=== PATIENT | female | born 1995 | race Caucasian/White ===

== ENCOUNTER 2019-09-22 01:55 | Inpatient (IN) | payer MEDICAID ==
[2019-09-22] MEDS ORDERED: Carboprost Tromethamine 250 MCG/1 ML Amp IM PRN (04:07)
[2019-09-22] MEDS ORDERED: Water For Irrigation,Sterile 1,000 ML Container IRR PRN (04:07)
[2019-09-22] MEDS ORDERED: Lidocaine 1% 50 ML MDV INJECT PRN (04:07)
[2019-09-22] MEDS ORDERED: Butorphanol 1 MG/ML SDV IVPUSH PRN (04:07)
[2019-09-22] MEDS ORDERED: Misoprostol 200 MCG Tab PO PRN (04:07)
[2019-09-22] MEDS ORDERED: Sodium Chloride 0.9% 10 ML SDV IV PRN (04:07)
[2019-09-22] MEDS ORDERED: Nalbuphine 10 MG/1 ML Vial IVPUSH PRN (04:07)
[2019-09-22] MEDS ORDERED: Tranexamic Acid 1,000 MG in Sodium Chloride 0.9% 100 ML IV PRN (04:07)
[2019-09-22] MEDS ORDERED: Sodium Chloride 0.9% 10 ML Syringe FLUSH PRN (04:07)
[2019-09-22] MEDS ORDERED: Ondansetron 4 MG/2 ML SDV IVPUSH PRN (04:07)
[2019-09-22] MEDS ORDERED: Methylergonovine 0.2 MG/1 ML Amp IM PRN (04:07)
[2019-09-22] MEDS ORDERED: Sodium Chloride 0.9% 2.5 ML Syringe FLUSH PRN (04:07)
[2019-09-22] MEDS ORDERED: Lactated Ringers 1,000 ML IV SCH (04:15)
[2019-09-22] MEDS ORDERED: Oxytocin/0.9 % Sodium Chloride 30 UNIT/500 ML BAG IV SCH (04:15)
[2019-09-22] MEDS ORDERED: Benzocaine/Menthol 20%-0.5% Spray 78 GM Cannister TOP PRN (07:41)
[2019-09-22] MEDS ORDERED: Acetaminophen 500 MG Tab PO PRN (07:41)
[2019-09-22] MEDS ORDERED: Bisacodyl 10 MG Supp RECTAL PRN (07:41)
[2019-09-22] MEDS ORDERED: Diphtheria,Pertussis(Acell),Tetanus Vaccine 0.5 ML Syringe IM ONE (07:41)
[2019-09-22] MEDS ORDERED: oxyCODONE 5 MG Tab PO PRN (07:41)
[2019-09-22] MEDS ORDERED: Lanolin 100% Cream 7 GM Tube TOP PRN (07:41)
[2019-09-22] MEDS ORDERED: Witch Hazel Medicated Pads 40/Jar TOP PRN (07:41)
--- NOTE | 2019-09-22 07:45 | PCM.OPNOTE ---
- General Post-Op/Procedure Note Date of Surgery/Procedure: 09/22/19 Operative Procedure(s): Spontaneous vaginal delivery. Repair of second degree perineal laceration and left labial laceration Findings: Live male infant, Apgars 8/9, weight pending, cord gases pending, nuchal cord x1 Placenta intact, with 3-vessel cord Pre Op Diagnosis: 23yo at 39w3d by patient-stated JOSE Post-Op Diagnosis: 23yo s/p spontaneous vaginal delivery at 39w3d Anesthesia Technique: Local Primary Surgeon: Eleanor Cutler Pathology: Cord gases, cord blood, placenta EBL in mLs: 400 Complications: None Condition: Good
[2019-09-22] MEDS: Ibuprofen 800 MG Tab PO PRN ×2 (09:07→20:58)
--- NOTE | 2019-09-22 12:54 | HP ---
DATE OF : 1995 PRIMARY CARE PHYSICIAN: None PCP CHIEF COMPLAINT: Contractions. HISTORY OF PRESENT ILLNESS: This is a 23-year-old, G1, P0, at 39 weeks and 3 days gestation by patient- stated JOSE who presented complaining of contractions. On presentation, she was found to be 2 to 3 cm dilated. After walking for an hour, her cervix had changed to 4 to 5 cm dilated. She was admitted to Labor and Delivery for active labor. The patient had received no care throughout this . labs were obtained. She reports positive movement. She denies leakage of fluid or vaginal bleeding. PAST OBSTETRICAL HISTORY: G1 current. PAST GYNECOLOGIC HISTORY: Denies history of abnormal Pap smear. PAST MEDICAL HISTORY: Denies asthma, high blood pressure, diabetes. PAST SURGICAL HISTORY: Denies. FAMILY HISTORY: Noncontributory. SOCIAL HISTORY: Denies tobacco, alcohol, and drug use. ALLERGIES: Amoxicillin. MEDICATIONS: None. PHYSICAL EXAMINATION: VITAL SIGNS: Blood pressure 116/80, heart rate 78. GENERAL: No obvious distress. CARDIOVASCULAR: Regular rate and rhythm. LUNGS: Clear to auscultation bilaterally. ABDOMEN: Soft, nontender to palpation, gravid. PELVIC: Sterile vaginal exam, 8 cm dilated, 90% effaced, -1 station. LABORATORY DATA: Hemoglobin 13.7, platelets 258. Urine drug screen negative. Blood type B positive. Antibody screen negative. Hepatitis B negative. Hepatitis C negative. HIV negative. Rubella immune. ASSESSMENT AND PLAN: This is a 23-year-old, G1, P0, at 39 weeks and 3 days gestation by patient stated JOSE in labor. 1. Active labor, status post artificial rupture of membranes with minimal clear fluid noted. 2. GBS unknown per guidelines. No antibiotics indicated as the patient is term. 3. No care. labs obtained. The patient reports having received 4 ultrasounds throughout the . JOSEPH / SHERICE /[id number] JONATAN
--- NOTE | 2019-09-22 13:20 | OR ---
SURGEON: Eleanor Cutler MD DATE OF PROCEDURE: 09/22/2019 PREOPERATIVE DIAGNOSIS: A 23-year-old, G1, P0, at 39-3/7 weeks' gestation by patient stated estimated date of delivery. POSTOPERATIVE DIAGNOSIS: A 23-year-old, G1, P0, at 39-3/7 weeks' gestation by patient stated estimated date of delivery. PROCEDURES: 1. Spontaneous vaginal delivery. 2. Repair of second-degree laceration and left labial laceration. ANESTHESIA: Local. ESTIMATED BLOOD LOSS: 400 mL. FINDINGS: Live male infant in cephalic presentation with nuchal cord x1. scores 8 and 9 at one and five minutes respectively. Weight 3080 g. Cord gases pending. Cord blood pending. Placenta intact and with three-vessel cord. DESCRIPTION OF PROCEDURE: The patient presented to Labor and Delivery in spontaneous labor. She reported she was 39-3/7 weeks' gestation. She had received no care. She progressed to complete cervical dilation without epidural. At 8 cm dilated, she underwent artificial rupture of membranes with clear fluid noted. She progressed to complete cervical dilation without epidural. The patient pushed to spontaneous vaginal delivery and delivered a live male in cephalic presentation. The head was delivered followed by the remainder of the body. The was placed on the maternal abdomen. A nuchal cord x1 was reduced after delivery of the infant. After approximately 60 seconds of delayed cord clamping, the cord was clamped and cut. Lidocaine was infiltrated into a second-degree perineal laceration and a left labial laceration. The placenta was then delivered intact using the Morales-Castañeda maneuver. The lacerations were repaired to anatomy and hemostasis with 2-0 Vicryl. The fundus was firm, 2 cm below the umbilicus. Estimated blood loss was 400 mL. The patient and infant tolerated the delivery well. [id number] / MODL /[id number] JONATAN
--- NOTE | 2019-09-23 06:20 | PCM.PNPP ---
- General Info Date of Service: 09/23/19 Subjective Update: 23yo P1 s/p PPD 1 denies any complains Normal lochia Functional Status: Reports: Pain Controlled, Tolerating Diet, Ambulating, Urinating - Review of Systems General: Reports: No Symptoms HEENT: Reports: No Symptoms Pulmonary: Reports: No Symptoms Cardiovascular: Reports: No Symptoms Gastrointestinal: Reports: No Symptoms Genitourinary: Reports: No Symptoms Musculoskeletal: Reports: No Symptoms Skin: Reports: No Symptoms Neurological: Reports: No Symptoms Psychiatric: Reports: No Symptoms - General Info Date of Service: 09/23/19 - Patient Data Vital Signs - Most Recent: Last Vital Signs Temp 36.5 C 09/23/19 05:30 Pulse 82 09/23/19 05:30 Resp 16 09/23/19 05:30 BP 116/72 09/23/19 05:30 Pulse Ox 96 09/23/19 05:30 Weight - Most Recent: 72.575 kg Lab Results - Last 24 Hours: Laboratory Results - last 24 hr 09/22/19 Range/Units 07:14 Cord ABG pH 7.305 (7.18-7.38) Cord ABG Base Excess -8 (-10--2) Cord VBG pH 7.357 (7.25-7.45) Cord VBG Base Excess -4 (-10--2) Med Orders - Current: Current Medications Acetaminophen (Tylenol Extra Strength) 1,000 mg PO Q6H PRN PRN Reason: Pain Benzocaine/Menthol (Dermoplast Pain Relief 20%-0.5% [place]) 78 gm TOP ASDIRECTED PRN PRN Reason: Perineal Comfort Measure Last Admin: 09/22/19 09:09 Dose: 1 can Bisacodyl (Dulcolax) 10 mg RECTAL ONETIME PRN PRN Reason: Constipation Butorphanol Tartrate (Stadol) 1 mg IVPUSH Q1H PRN PRN Reason: Pain Carboprost Tromethamine (Hemabate Ds) 250 mcg IM ASDIRECTED PRN PRN Reason: Post Hemorrhage Docusate Sodium (Colace) 100 mg PO BID PRN PRN Reason: Constipation Emollient Ointment (Lansinoh Hpa) 0 gm TOP ASDIRECTED PRN PRN Reason: Sore Nipples Last Admin: 09/22/19 09:08 Dose: 7 gram Tranexamic Acid 1,000 mg/ (Sodium Chloride) 110 mls @ 660 mls/hr IV ONETIME PRN PRN Reason: Bleeding Lactated Ringer's (Ringers, Lactated) 1,000 mls @ 150 mls/hr IV ASDIRECTED [facility] Oxytocin/Sodium Chloride (Oxytocin 30 Unit/500 Ml-Ns) 30 unit in 500 mls @ 500 mls/hr IV TITRATE RA Ibuprofen (Motrin) 800 mg PO Q8H PRN PRN Reason: Pain Last Admin: 09/22/19 20:58 Dose: 800 mg Lidocaine HCl (Xylocaine 1%) 50 ml INJECT ONETIME PRN PRN Reason: Laceration repair Last Admin: 09/22/19 07:14 Dose: 50 ml Methylergonovine Maleate (Methergine) 0.2 mg IM ASDIRECTED PRN PRN Reason: Post Hemorrhage Misoprostol (Cytotec) 200 mcg PO ONETIME PRN PRN Reason: Post Hemorrhage Nalbuphine HCl (Nubain) 10 mg IVPUSH Q1H PRN PRN Reason: Pain (severe 7-10) Ondansetron HCl (Zofran) 4 mg IVPUSH Q4H PRN PRN Reason: Nausea/Vomiting Oxycodone HCl (Oxycodone) 5 mg PO Q2H PRN PRN Reason: Pain Sodium Chloride (Saline Flush) 10 ml FLUSH ASDIRECTED PRN PRN Reason: Keep Vein Open Sodium Chloride (Saline Flush) 2.5 ml FLUSH ASDIRECTED PRN PRN Reason: Keep Vein Open Sodium Chloride (Normal Saline) 10 ml IV ASDIRECTED PRN PRN Reason: IV Use Sterile Water (Sterile Water For Irrigation) 1,000 ml IRR ASDIRECTED PRN PRN Reason: delivery Last Admin: 09/22/19 07:14 Dose: 1,000 ml Witch Juany (Tucks) 1 pad TOP ASDIRECTED PRN PRN Reason: comfort care Last Admin: 09/22/19 09:09 Dose: 1 tub Discontinued Medications Diphtheria/Tetanus/Acell Pertussis (Adacel) 0.5 ml IM .ONCE ONE Stop: 09/22/19 07:42 - Interaction Support Person: Mother - Recovery Exam Fundal Tone: Firm Fundal Level: 1 Fingerbreadths Below Umbilicus Fundal Placement: Midline Lochia Amount: Scant Lochia Color: Rubra/Red Perineum Description: Intact, Minimal Bruising/Swelling Episiotomy/Laceration: Approximated Bladder Status: Voiding - Exam General: Alert HEENT: Pupils Equal Neck: Supple Lungs: Clear to Auscultation Cardiovascular: Regular Rate, Regular Rhythm GI/Abdominal Exam: Normal Bowel Sounds Extremities: Normal Inspection Neurological: No New Focal Deficit Psy/Mental Status: Alert - Problem List & Annotations (1) Vaginal delivery SNOMED Code(s): 388516483 Code(s): O80 - ENCOUNTER FOR FULL-TERM UNCOMPLICATED DELIVERY Status: Acute Current Visit: Yes - Problem List Review Problem List Initiated/Reviewed/Updated: Yes - Assessment Assessment:: 23yo P1 s/p PPD1 , stable , Normal lochia , - Plan Plan:: Routine care Anticipate discharge tomorrow because will be kept for 48hrs for GBS unknown status of mother and no antibiotics prior to delivery
[2019-09-23] MEDS: Docusate Sodium 100 MG Cap PO PRN ×2 (07:56→21:43)
[2019-09-23] MEDS: Ibuprofen 800 MG Tab PO PRN ×2 (07:56→21:43)
[2019-09-24] MEDS: Ibuprofen 800 MG Tab PO PRN (06:18)
--- NOTE | 2019-09-24 08:42 | PCM.PNPP ---
- General Info Date of Service: 09/24/19 Subjective Update: 23yo P1 s/p PPD 2 denies any complains Normal lochia Functional Status: Reports: Pain Controlled, Tolerating Diet, Ambulating, Urinating - Review of Systems General: Reports: No Symptoms HEENT: Reports: No Symptoms Pulmonary: Reports: No Symptoms Cardiovascular: Reports: No Symptoms Gastrointestinal: Reports: No Symptoms Genitourinary: Reports: No Symptoms Musculoskeletal: Reports: No Symptoms Skin: Reports: No Symptoms Neurological: Reports: No Symptoms Psychiatric: Reports: No Symptoms - General Info Date of Service: 09/24/19 - Patient Data Vital Signs - Most Recent: Last Vital Signs Temp 36.5 C 09/24/19 07:32 Pulse 83 09/24/19 07:32 Resp 18 09/24/19 07:32 BP 98/66 09/24/19 07:32 Pulse Ox 96 09/24/19 07:32 Weight - Most Recent: 72.575 kg Lab Results - Last 24 Hours: Laboratory Results - last 24 hr 09/22/19 Range/Units 04:29 RPR Non Reactive (NonRea<1:1) Med Orders - Current: Current Medications Acetaminophen (Tylenol Extra Strength) 1,000 mg PO Q6H PRN PRN Reason: Pain Last Admin: 09/23/19 15:01 Dose: 1,000 mg Benzocaine/Menthol (Dermoplast Pain Relief 20%-0.5% [place]) 78 gm TOP ASDIRECTED PRN PRN Reason: Perineal Comfort Measure Last Admin: 09/22/19 09:09 Dose: 1 can Bisacodyl (Dulcolax) 10 mg RECTAL ONETIME PRN PRN Reason: Constipation Butorphanol Tartrate (Stadol) 1 mg IVPUSH Q1H PRN PRN Reason: Pain Carboprost Tromethamine (Hemabate Ds) 250 mcg IM ASDIRECTED PRN PRN Reason: Post Hemorrhage Docusate Sodium (Colace) 100 mg PO BID PRN PRN Reason: Constipation Last Admin: 09/23/19 21:43 Dose: 100 mg Emollient Ointment (Lansinoh Hpa) 0 gm TOP ASDIRECTED PRN PRN Reason: Sore Nipples Last Admin: 09/22/19 09:08 Dose: 7 gram Tranexamic Acid 1,000 mg/ (Sodium Chloride) 110 mls @ 660 mls/hr IV ONETIME PRN PRN Reason: Bleeding Lactated Ringer's (Ringers, Lactated) 1,000 mls @ 150 mls/hr IV ASDIRECTED [facility] Oxytocin/Sodium Chloride (Oxytocin 30 Unit/500 Ml-Ns) 30 unit in 500 mls @ 500 mls/hr IV TITRATE [facility] Ibuprofen (Motrin) 800 mg PO Q8H PRN PRN Reason: Pain Last Admin: 09/24/19 06:18 Dose: 800 mg Lidocaine HCl (Xylocaine 1%) 50 ml INJECT ONETIME PRN PRN Reason: Laceration repair Last Admin: 09/22/19 07:14 Dose: 50 ml Methylergonovine Maleate (Methergine) 0.2 mg IM ASDIRECTED PRN PRN Reason: Post Hemorrhage Misoprostol (Cytotec) 200 mcg PO ONETIME PRN PRN Reason: Post Hemorrhage Nalbuphine HCl (Nubain) 10 mg IVPUSH Q1H PRN PRN Reason: Pain (severe 7-10) Ondansetron HCl (Zofran) 4 mg IVPUSH Q4H PRN PRN Reason: Nausea/Vomiting Oxycodone HCl (Oxycodone) 5 mg PO Q2H PRN PRN Reason: Pain Sodium Chloride (Saline Flush) 10 ml FLUSH ASDIRECTED PRN PRN Reason: Keep Vein Open Sodium Chloride (Saline Flush) 2.5 ml FLUSH ASDIRECTED PRN PRN Reason: Keep Vein Open Sodium Chloride (Normal Saline) 10 ml IV ASDIRECTED PRN PRN Reason: IV Use Sterile Water (Sterile Water For Irrigation) 1,000 ml IRR ASDIRECTED PRN PRN Reason: delivery Last Admin: 09/22/19 07:14 Dose: 1,000 ml [place] (Tucks) 1 pad TOP ASDIRECTED PRN PRN Reason: comfort care Last Admin: 09/22/19 09:09 Dose: 1 tub Discontinued Medications Diphtheria/Tetanus/Acell Pertussis (Adacel) 0.5 ml IM .ONCE ONE Stop: 09/22/19 07:42 - Infant Interaction Support Person: Mother - Recovery Exam Fundal Tone: Firm Fundal Level: 2 Fingerbreadths Below Umbilicus Fundal Placement: Midline Lochia Amount: Scant Lochia Color: Rubra/Red Perineum Description: Edematous Episiotomy/Laceration: Approximated Bladder Status: Nonpalpable, Voiding Urinary Elimination: Voided - Exam General: Alert HEENT: Pupils Equal, Pupils Reactive Neck: Supple Lungs: Clear to Auscultation, Normal Respiratory Effort Cardiovascular: Regular Rate, Regular Rhythm GI/Abdominal Exam: Normal Bowel Sounds Extremities: Normal Inspection Neurological: No New Focal Deficit Psy/Mental Status: Alert - Problem List & Annotations (1) Vaginal delivery SNOMED Code(s): 868742880 Code(s): O80 - ENCOUNTER FOR FULL-TERM UNCOMPLICATED DELIVERY Status: Acute Current Visit: Yes - Problem List Review Problem List Initiated/Reviewed/Updated: Yes - Assessment Assessment:: 23yo P1 s/p PPD2 , stable , Normal lochia , - Plan Plan:: Routine care Discharge home today
--- NOTE | 2019-09-24 08:43 | PCM.DCSUM1 ---
Discharge Summary - Hospital Course Brief History: 23 p1 s/p , no care Diagnosis: Stroke: No - Discharge Data Discharge Date: 09/24/19 Discharge Disposition: Home, Self-Care 01 Condition: Good - Referral to Home Health Primary Care Physician: PCP None - Discharge Diagnosis/Problem(s) (1) Vaginal delivery SNOMED Code(s): 473963582 ICD Code: O80 - ENCOUNTER FOR FULL-TERM UNCOMPLICATED DELIVERY Status: Acute Current Visit: Yes - Patient Summary/Data Operative Procedure(s) Performed: Spontaneous vaginal delivery. Repair of second degree perineal laceration and left labial laceration - Patient Instructions Diet: Usual Diet as Tolerated Activity: Apply Ice, As Tolerated Driving: May Drive Today Showering/Bathing: May Shower Notify Provider of: Fever, Increased Pain, Swelling and Redness, Nausea and/or Vomiting Other/Special Instructions: Please notify clinic if temperature >100.4, heavy vaginal bleeding, uncontrolled pain, or any questions or concerns. May take Ibuprofen 800mg every 8 hours and Tylenol 1000mg every 6 hours as needed for pain. - Discharge Plan *PRESCRIPTION DRUG MONITORING PROGRAM REVIEWED*: Not Applicable *COPY OF PRESCRIPTION DRUG MONITORING REPORT IN PATIENT CAROLANN: Not Applicable Home Medications: Home Meds . [No Known Home Meds] 05/30/19 [History] Referrals: [facility] [Outside] Eleanor Cutler MD [Physician] - 11/03/19 11:15 am (6 weeks visit) - Discharge Summary/Plan Comment DC Time >30 min.: No - Patient Data Vitals - Most Recent: Last Vital Signs Temp 36.5 C 09/24/19 07:32 Pulse 83 09/24/19 07:32 Resp 18 09/24/19 07:32 BP 98/66 09/24/19 07:32 Pulse Ox 96 09/24/19 07:32 Weight - Most Recent: 72.575 kg Lab Results - Last 24 hrs: Laboratory Results - last 24 hr 09/22/19 Range/Units 04:29 RPR Non Reactive (NonRea<1:1) Med Orders - Current: Current Medications Acetaminophen (Tylenol Extra Strength) 1,000 mg PO Q6H PRN PRN Reason: Pain Last Admin: 09/23/19 15:01 Dose: 1,000 mg Benzocaine/Menthol (Dermoplast Pain Relief 20%-0.5% [place]) 78 gm TOP ASDIRECTED PRN PRN Reason: Perineal Comfort Measure Last Admin: 09/22/19 09:09 Dose: 1 can Bisacodyl (Dulcolax) 10 mg RECTAL ONETIME PRN PRN Reason: Constipation Butorphanol Tartrate (Stadol) 1 mg IVPUSH Q1H PRN PRN Reason: Pain Carboprost Tromethamine (Hemabate Ds) 250 mcg IM ASDIRECTED PRN PRN Reason: Post Hemorrhage Docusate Sodium (Colace) 100 mg PO BID PRN PRN Reason: Constipation Last Admin: 09/23/19 21:43 Dose: 100 mg Emollient Ointment (Lansinoh Hpa) 0 gm TOP ASDIRECTED PRN PRN Reason: Sore Nipples Last Admin: 09/22/19 09:08 Dose: 7 gram Tranexamic Acid 1,000 mg/ (Sodium Chloride) 110 mls @ 660 mls/hr IV ONETIME PRN PRN Reason: Bleeding Lactated Ringer's (Ringers, Lactated) 1,000 mls @ 150 mls/hr IV ASDIRECTED RA Oxytocin/Sodium Chloride (Oxytocin 30 Unit/500 Ml-Ns) 30 unit in 500 mls @ 500 mls/hr IV TITRATE RA Ibuprofen (Motrin) 800 mg PO Q8H PRN PRN Reason: Pain Last Admin: 09/24/19 06:18 Dose: 800 mg Lidocaine HCl (Xylocaine 1%) 50 ml INJECT ONETIME PRN PRN Reason: Laceration repair Last Admin: 09/22/19 07:14 Dose: 50 ml Methylergonovine Maleate (Methergine) 0.2 mg IM ASDIRECTED PRN PRN Reason: Post Hemorrhage Misoprostol (Cytotec) 200 mcg PO ONETIME PRN PRN Reason: Post Hemorrhage Nalbuphine HCl (Nubain) 10 mg IVPUSH Q1H PRN PRN Reason: Pain (severe 7-10) Ondansetron HCl (Zofran) 4 mg IVPUSH Q4H PRN PRN Reason: Nausea/Vomiting Oxycodone HCl (Oxycodone) 5 mg PO Q2H PRN PRN Reason: Pain Sodium Chloride (Saline Flush) 10 ml FLUSH ASDIRECTED PRN PRN Reason: Keep Vein Open Sodium Chloride (Saline Flush) 2.5 ml FLUSH ASDIRECTED PRN PRN Reason: Keep Vein Open Sodium Chloride (Normal Saline) 10 ml IV ASDIRECTED PRN PRN Reason: IV Use Sterile Water (Sterile Water For Irrigation) 1,000 ml IRR ASDIRECTED PRN PRN Reason: delivery Last Admin: 09/22/19 07:14 Dose: 1,000 ml [place] (Tucks) 1 pad TOP ASDIRECTED PRN PRN Reason: comfort care Last Admin: 09/22/19 09:09 Dose: 1 tub Discontinued Medications Diphtheria/Tetanus/Acell Pertussis (Adacel) 0.5 ml IM .ONCE ONE Stop: 09/22/19 07:42 *Q Meaningful Use (DIS) - VTE *Q VTE Criteria *Q: 1
== END 2019-09-24 15:06 | disposition home or self-care (01) | DRG 807 ==
LOC: MW.OBCHECK 01:55 → MW.OB 01:58 → MW.OBCHECK 04:07 → MW.OB 04:07 → OBSVTOIN 07:14 → MW.OB 12:13
PROVIDERS: ADMIT Obstetrics & Gynecology; ATTEND Obstetrics & Gynecology
PROC: 10E0XZZ Delivery of Products of Conception, External Approach (ICD-10-PCS; principal; 2019-09-22)
PROC: 0KQM0ZZ Repair Perineum Muscle, Open Approach (ICD-10-PCS; 2019-09-22)
PROC: 10907ZC Drainage of Amniotic Fluid, Therapeutic from Products of Conception, Via Natural or Artificial Opening (ICD-10-PCS; 2019-09-22)
PROC: 0UQMXZZ Repair Vulva, External Approach (ICD-10-PCS; 2019-09-22)
DX: O69.81X0 Labor and delivery complicated by cord around neck, without compression, not applicable or unspecified (principal); Z37.0 Single live birth; O70.1 Second degree perineal laceration during delivery; O70.0 First degree perineal laceration during delivery; Z3A.39 39 weeks gestation of pregnancy; Z88.1 Allergy status to other antibiotic agents
CPT/HCPCS: 36415; 59025; 59409; 80305-QW; 81003; 82803; 85014; 85018; 85027; 86593; 86762; 86803; 86850; 86900; 86901; 87340; 87389; A9270-GY; J2001

== ENCOUNTER 2022-06-01 17:02 | Emergency (ER) | payer MEDICAID ==
[2022-06-01] MEDS ORDERED: Ibuprofen 600 MG Tab PO ONE (18:42)
[2022-06-01] MEDS ORDERED: Cephalexin 500 MG Cap PO ONE (18:42)
== END 2022-06-01 19:27 | disposition home or self-care (01) ==
LOC: MW.ED 17:02
DX: K04.7 Periapical abscess without sinus (principal); Z88.0 Allergy status to penicillin
CPT/HCPCS: 99282; A9270

== ENCOUNTER 2024-08-15 11:30 | Emergency (ER) | payer SELFPAY ==
[2024-08-15] MEDS: Doxycycline 100 MG Cap PO ONE (12:02)
== END 2024-08-15 14:06 | disposition home or self-care (01) ==
LOC: MW.ED 11:30
DX: S80.212A Abrasion, left knee, initial encounter (principal); S89.92XA Unspecified injury of left lower leg, initial encounter; F17.210 Nicotine dependence, cigarettes, uncomplicated; Z88.0 Allergy status to penicillin; Z75.8 Other problems related to medical facilities and other health care; W19.XXXA Unspecified fall, initial encounter
CPT/HCPCS: 73562; 99283; A9270